=== PATIENT | male | born 1985 | race Two or more races ===

== ENCOUNTER 2021-11-01 18:15 | Emergency (ER) | payer BC ==
[~2021-11-01] VITALS: Ht 180.3 cm; Wt 175.0 kg
[2021-11-01] MEDS ORDERED: DIPHTH,PERTUSS(ACELL),TET TOX 0.5 ML DISP.SYRIN. VAX IM ONE (18:45)
[2021-11-01] MEDS ORDERED: LIDOCAINE/EPI/TETRACAINE TOPICAL GEL 3 ML. TP ONE (18:45)
--- NOTE | 2021-11-01 18:48 | PHYS DOC ---
Past History Past Surgical History: Other Additional Past Surgical Histo: Knee surgery, foot surgery Adult General Chief Complaint Chief Complaint: LACERATION/AVULSION HPI HPI Patient is an otherwise healthy 36-year-old male who presents with left thumb laceration. States he was putting together a swing set, and was cutting open a box, slipped and cut his left thumb. Denies any other injuries. States he cannot remember his last tetanus update. Review of Systems Review of Systems Review of systems otherwise unremarkable except noted in HPI Allergies Allergies Allergies Coded Allergies Type Severity Reaction Last Updated Verified mold Allergy Unknown 11/01/21 Yes Uncoded Allergies Type Severity Reaction Last Updated Verified DUST Allergy Unknown 11/01/21 FELINE Allergy Unknown 11/01/21 Physical Exam Physical Exam Constitutional: Well developed, well nourished, no acute distress, non-toxic appearance. [] HENT: Normocephalic, atraumatic, Neck: Normal range of motion, no tenderness, supple, no stridor. [] Cardiovascular:Heart rate regular rhythm, no murmur [] Lungs & Thorax: Bilateral breath sounds clear to auscultation [] Extremities: Neurovascular exam intact, 3 cm linear laceration across the lateral aspect of the left distal first digit, no nail involvement, range of motion intact Neurologic: Alert and oriented X 3, normal motor function, normal sensory function, no focal deficits noted. [] Psychologic: Affect normal, judgement normal, mood normal. [] Current Patient Data Vital Signs Vital Signs Date Time Temp Pulse Resp B/P (MAP) Pulse Ox O2 Delivery O2 Flow Rate FiO2 11/01/21 18:25 97.8 74 16 146/104 (118) 97 EKG EKG [] Radiology/Procedures Radiology/Procedures [] Heart Score C/O Chest Pain: No Risk Factors: Risk Factors: DM, Current or recent (<one month) smoker, HTN, HLP, family history of CAD, obesity. Risk Scores: Risk Factors: DM, Current or recent (<one month) smoker, HTN, HLP, family history of CAD, obesity. Course & Med Decision Making Course & Med Decision Making Patient is a 36-year-old male who presents with thumb laceration Vital signs not concerning. Physical exam noted above. Wound cleaned. L ET placed for topical anesthesia. Five 4-0 Ethilon sutures placed successfully. Washed and bandaged. Tetanus updated. Given dose of antibiotics in the ED. Discussed findings with patient. Given wound care instructions and materials. Advised to follow-up with primary care physician soon as possible to set up a wound check and suture removal in 5 to 7 days. Gave return precautions to the ED. Patient grateful, verbalized understanding and agreed with plan of discharge. [] Dragon Disclaimer Dragon Disclaimer This electronic medical record was generated, in whole or in part, using a voice recognition dictation system. Departure Departure: Impression: Primary Impression: Thumb laceration Disposition: HOME / SELF CARE / HOMELESS Condition: GOOD Referrals: PCP,NO (PCP) KENAN OBANDO MD Patient Instructions: Fingertip Laceration Additional Instructions: Thank you for coming into the emergency department tonight and allowing us to take care of you. Please read the attached information carefully to go back over some of the things we discussed. Please be sure not to submerge your wound in water for the next 24 hours. Please keep the area clean, dry and bandaged. You can change your bandage daily and clean lightly with warm soapy water. Please call your primary care physician as soon as you can to update on your ED visit and set up a follow-up for wound check and suture removal in 5 to 7 days. Please do not go longer than 7 days. If you cannot get into your primary care physician you can return to the emergency department. Please come back with new or concerning symptoms as discussed. YOBANI MILIAN MD Nov 01, 2021 18:48
[2021-11-01 18:58] VITALS: BP 146/81
[2021-11-01] MEDS ORDERED: CEPHALEXIN 250 MG CAPSULE PO ONE (19:00)
[2021-11-01] MEDS ORDERED: oxyCODONE/APAP 5/325 1 TAB TABLET PO ONE (20:00)
[2021-11-01] MEDS ORDERED: oxyCODONE/APAP 5/325 1 TAB TABLET ONE (20:01)
== END 2021-11-01 20:00 | disposition home or self-care (01) ==
LOC: ER 18:15
DX: S61.012A Laceration without foreign body of left thumb without damage to nail, initial encounter (principal); Z88.8 Allergy status to other drugs, medicaments and biological substances; W26.8XXA Contact with other sharp object(s), not elsewhere classified, initial encounter; Y93.89 Activity, other specified; Y92.89 Other specified places as the place of occurrence of the external cause; Y99.8 Other external cause status
CPT/HCPCS: 12002; 90471; 90715; 99283